=== PATIENT | male | born 1985 | race Caucasian/White ===

== ENCOUNTER 2016-02-21 09:46 | Emergency (ER) | payer SELFPAY ==
[2016-02-21 09:56] VITALS: BP 132/94
[2016-02-21] MEDS ORDERED: MOTRIN PO ONE (10:37)
[2016-02-21] MEDS ORDERED: NORCO 5/325 PO ONE (10:37)
[2016-02-21] MEDS ORDERED: XYLOCAINE 2% INFILTRATI ONE (10:38)
[2016-02-21] MEDS ORDERED: BOOSTRIX IM ONE (10:38)
[2016-02-21] MEDS ORDERED: KEFLEX PO ONE (10:38)
[2016-02-21] MEDS ORDERED: NACL 0.9% IR ONE ×2 (10:39→11:00)
--- NOTE | 2016-02-21 11:45 | Emergency Department Report ---
Upper Extremity - HPI Chief Complaint: Extremity Injury, Upper Stated Complaint: LEFT RING FINGER LACERATION Time Seen by Provider: 02/21/16 10:37 Upper Extremity: Left Middle Finger (small horizontal laceration approximately 2 cm above the left middle finger PIP joint) Occurred When: Today Severity: moderate Symptoms: Yes Pain with Movement, No Deformity, No Limited Range of Movement, No Numbness, No Weakness, No Swelling Other History: 30-year-old male presents with laceration to left middle finger states that he accidentally cut himself with razor blade while using a razor on a hose repairing his car today. Minimal bleeding, visible laceration horizontal approximately 2 cm over PIP joint left middle finger. No other injuries per patient. Does not recall tetanus status. ED Review of Systems ROS: Stated complaint: LEFT RING FINGER LACERATION Other details as noted in HPI Constitutional: denies: chills, fever Eyes: denies: eye pain, eye discharge, vision change ENT: denies: ear pain, throat pain Respiratory: denies: cough, shortness of breath, wheezing Cardiovascular: denies: chest pain, palpitations Endocrine: no symptoms reported Gastrointestinal: denies: abdominal pain, nausea, diarrhea Genitourinary: denies: urgency, dysuria Musculoskeletal: denies: back pain, joint swelling, arthralgia Skin: denies: rash, lesions Neurological: denies: headache, weakness, paresthesias Psychiatric: denies: anxiety, depression Hematological/Lymphatic: denies: easy bleeding, easy bruising ED Past Medical Hx - Past Medical History Previous Medical History?: Yes Additional medical history: sinus infection, URI - Surgical History Past Surgical History?: No - Social History Smoking Status: Never Smoker - Medications Home Medications: Home Medications Medication Instructions Recorded Confirmed Last Taken Type Ampicillin [Polycillin] 500 mg IV Q6H 02/21/16 02/21/16 Unknown History Cephalexin [Keflex] 500 mg PO Q12HR #14 cap 02/21/16 Unknown Rx Ibuprofen [Motrin] 600 mg PO Q8H PRN #30 tablet 02/21/16 Unknown Rx Zithromax Z-BRISSA 02/21/16 02/20/16 History predniSONE 02/21/16 02/20/16 History Upper Extremity Exam - Exam General: Vital signs noted. No distress. Alert and acting appropriately. Head and Torso: No HEENT Abnormality, No Neck Tenderness, No Chest/Lungs Abnormality, No Abdominal Tenderness, No Back Tenderness Shoulder Exam: Yes Normal Range of Motion in Shoulder, No Shoulder Tenderness, No Clavicle Tenderness, No Shoulder Deformity, No AC Joint Tenderness Arm Exam: No Arm/Humerus Tenderness, No Arm Deformity Elbow: No Elbow Tenderness, No Normal Range of Motion in Elbow, No Elbow Deformity Forearm: No Forearm Tenderness, No Forearm Deformity, No Pain with Pronation, No Pain with Supination Wrist: Yes Normal ROM in Wrist, No Wrist Tenderness, No Wrist Deformity, No Snuffbox Tenderness, No Pain with Axial Thumb Compression Hand: Yes Digit Tenderness (left middle finger tenderness), Yes Normal ROM in Digit(s) (left middle finger range of motion PIP DIP and MCP fully intact and against resistance. Capillary refill less than 1 second), No Hand Tenderness, No Hand Deformity, No Digit(s) Deformity, No Tendon Dysfunction CMS Exam: Yes Normal Capillary Refill, Yes Normal Distal Sensation (sensation left middle finger fully intact), No Broken Skin, No Normal Distal Pulses ED Course Vital Signs 02/21/16 09:52 Temperature 98.5 F Pulse Rate 95 H Respiratory 18 Rate Blood Pressure 132/94 O2 Sat by Pulse 100 Oximetry - Laceration /Wound Repair Left Finger Wound Length (cm): 2 Wound's Depth, Shape: superficial Wound Explored: clean Irrigated w/ Saline (ccs): 1,000 Betadine Prep?: Yes Anesthesia: 1% Lidocaine Volume Anesthetic (ccs): 4 Wound Repaired With: sutures Suture Size/Type: 5:0, nylon Number of Sutures: 7 Sterile Dressing Applied?: Yes (triple antibiotic ointment with gauze placed on top. Patient placed in fin) Progress: He tolerated well minimal bleeding. Neurovascularly intact finger. ED Medical Decision Making - Medical Decision Making A/P: Left middle finger laceration 1-7 sutures placed, good closure, no involvement of joint, no exposed bone. Finger placed in a finger splint. While there is no evidence of tendon involvement and finger is neurovascularly intact we'll give patient with a referral in case he experiences any loss of range of motion of finger. 2-tetanus updated today 3-given 600 when necessary, Keflex 500 mg twice a day 7 days 4-sutures to be removed in approximately 10 days, I instructed patient to come to ED or urgent care center for removal 5-advised patient to return to the ED if he experiences fever chills as is range of motion in left finger, there is any pus drainage or finger become cellulitic as foul odor. Critical care attestation.: If time is entered above; I have spent that time in minutes in the direct care of this critically ill patient, excluding procedure time. ED Disposition Clinical Impression: Finger laceration Qualifiers: Encounter type: initial encounter Qualified Code(s): S61.219A - Laceration without foreign body of unspecified finger without damage to nail, initial encounter Disposition: DISCHARGED TO HOME OR SELFCARE Is pt being admited?: No Does the pt Need Aspirin: No Condition: Stable Instructions: Suture Care (ED), Laceration (ED), Finger Laceration (ED) Additional Instructions: Patient to return to the ED in approximately 10 days or urgent care for suture removal. Prescriptions: Cephalexin [Keflex] 500 mg PO Q12HR #14 cap Ibuprofen [Motrin] 600 mg PO Q8H PRN #30 tablet PRN Reason: Pain Referrals: [facility] [Outside] - 3-5 Days PRIMARY CAREMD [Primary Care Provider] - 3-5 Days BELLA SIDDIQUI MD [Staff Physician] - 3-5 Days Forms: Work/School Release Form(ED) Time of Disposition: 11:45 Print Language: NOR[place]GI[place]
[2016-02-21] MEDS ORDERED: TRIPLE ANTIBIOTIC TP ONE (11:46)
[2016-02-21] MEDS ORDERED: CORTISPORIN TP SCH (14:00)
== END 2016-02-21 12:20 | disposition home or self-care (01) ==
LOC: ED 09:46
DX: S61.215A Laceration without foreign body of left ring finger without damage to nail, initial encounter (principal); W45.8XXA Other foreign body or object entering through skin, initial encounter; Y93.89 Activity, other specified; Y99.8 Other external cause status; Y92.89 Other specified places as the place of occurrence of the external cause
CPT/HCPCS: 90471; 90715; A6250